=== PATIENT | female | born 1990 | race Caucasian/White ===

== ENCOUNTER 2017-09-11 17:34 | Observation (INO) ==
[2017-09-11] MEDS ORDERED: D5% in 0.45% NACL 1,000 ML IVC SCH (18:45)
--- NOTE | 2017-09-11 18:45 | OB/GYN Progress Note ---
Date of Encounter: 09/11/17 Time of Encounter: 18:38 - Assessment and Plan (1) 31 weeks gestation of Status: Acute at 31 11/24 EGA Tachycardia 100-107, BP normal, Afebrile Hx of pre-eclampsia in 2010 - Current symptoms of LIU, blurred vision, epigastric pain PIH labs normal, CBC normal, Electrolytes normal Hydrate with IV fluids Symptoms more consistent with viral illness - labs unremarkable Pt can be discharged home (2) Vomiting Status: Acute Vomiting and dizziness yesterday - hydrate with IV fluids Electrolytes normal Qualifiers: Vomiting type: unspecified Vomiting Intractability: non-intractable Nausea presence: with nausea Qualified Code(s): R11.2 - Nausea with vomiting, unspecified Subjective - Subjective Principal diagnosis: Vomiting, Headache Interval history: Pt is a 27 year old at 31 11/24 EGA presenting with multiple concerns. She reports a history of vomiting x3 yesterday, chills, and feeling dizzy. Today she reports vomiting x1, frontal headache, tinnitus, bilateral facial numbness now resolved, intermittent blurred vision, sternal chest pain with deep breaths x3, feeling like her "blood pressure is elevated", and epigastric pain that is now resolved. Reports +FM. Denies contractions, LOF, vaginal bleeding, vaginal discharge. Denies fevers, dyspnea, cough, diarrhea, constipation, dysuria, or extremity edema. Her first was complicated by pre-ecclampsia and she is worried that her blood pressure was high today. She reports that yesterday she felt worse than today. I examined this patient and my medical decision-making was reviewed with the Resident Physician. I agree with the documented findings, disposition and treatment plan as described except to the extent set forth below. FHTs CAT1 Antepartum ROS: movement normal, no loss of fluid, no vaginal bleeding, no contractions Objective - Vital Signs Vital Signs: Intake and Output 09/11/17 09/11/17 09/11/17 07:59 15:59 23:59 Other: Weight 84.7 kg Patient Weight 09/11/17 23:59 Weight 84.7 kg - Exam FHR: category 1 Auscultation: bilateral: normal Abdomen: Present: normal appearance, soft. Absent: tenderness Uterus: Present: normal, firm Comments: FHT baseline 135 with moderate variability
[2017-09-11] MEDS ORDERED: D5% in 0.45% NACL 1,000 ML IVC ONE (18:47)
[2017-09-11 18:57] LABS: Basophils % 0.4 %; Eosinophils # 0.1 K/mcL (0.0-0.6); Eosinophils % 0.6 %; Hematocrit 31.8 % (35.3-44.9); Hemoglobin 10.1 g/dL (11.5-15.4); Lymphocytes # 1.9 K/mcL (0.6-4.6); Mean Corpuscular HGB Conc 31.8 g/dL (31.6-35.5); Mean Corpuscular Hemoglobin 24.9 pg (28.0-33.3); Mean Corpuscular Volume 78.5 fL (83.0-100.0); Mean Platelet Volume 10.3 fL (9.4-12.4); Monocytes # 0.7 K/mcL (0.0-1.3); Monocytes % 6.4 %; Neutrophils # 8.1 K/mcL (1.6-8.9); Nucleated Red Blood Cells 0.2 /100 WBC (0); Platelet Count 279 K/mcL (140-400); Red Blood Count 4.05 M/mcL (3.82-4.97); Segmented Neutrophils % 72.6 %
[2017-09-11 19:04] LABS: Amphetamine Screen,Urine Negative ng/mL (Cutoff=1000); Barbiturate Screen,Urine Negative ng/mL (Cutoff=200); Benzodiazepines Screen,Urine Negative ng/mL (Cutoff=200); Cannabinoid Screen,Urine Negative ng/mL (Cutoff = 50); Cocaine Screen,Urine Negative ng/mL (Cutoff= 300); Opiate Screen,Urine Negative ng/mL (Cutoff=300); Phencyclidine Screen,Urine Negative ng/mL (Cutoff=25)
[2017-09-11 19:11] LABS: Alanine Aminotransferase 17 Units/L (0-55); Aspartate Amino Transferase 28 Units/L (5-34); BUN/Creatinine Ratio 13 (6-26); Blood Urea Nitrogen 7 mg/dL (7-20); Lactate Dehydrogenase 175 Units/L (159-327); eGFR For African Americans > 60 (> 60); eGFR For Non-African Americans > 60 (> 60)
[2017-09-11 20:10] LABS: Calcium 8.7 mg/dL (8.6-10.8); Carbon Dioxide 22 mEq/L (19-29); Chloride 107 mEq/L (98-109); Glucose 86 mg/dL (70-99); Osmolality,Calculated 283 (280-300); Potassium 3.9 mEq/L (3.5-4.5); Sodium 138 mEq/L (136-145)
== END 2017-09-11 20:26 | disposition home or self-care (01) ==
LOC: 1NENULAB
PROVIDERS: ADMIT Obstetrics & Gynecology; ATTEND Obstetrics & Gynecology

== ENCOUNTER 2017-10-27 11:40 | Observation (INO) ==
[2017-10-27 12:16] LABS: Basophils # 0.1 K/mcL (0.0-0.2); Basophils % 0.3 %; Eosinophils # 0.1 K/mcL (0.0-0.6); Eosinophils % 0.7 %; Hematocrit 33.2 % (35.3-44.9); Hemoglobin 10.3 g/dL (11.5-15.4); Immature Granulocytes % 4.8 % (0-4); Lymphocytes # 2.4 K/mcL (0.6-4.6); Lymphocytes % 16.3 %; Mean Corpuscular Hemoglobin 23.9 pg (28.0-33.3); Mean Platelet Volume 9.6 fL (9.4-12.4); Monocytes # 0.8 K/mcL (0.0-1.3); Monocytes % 5.2 %; Neutrophils # 10.5 K/mcL (1.6-8.9); Nucleated Red Blood Cells 0.1 /100 WBC (0); Platelet Count 389 K/mcL (140-400); Red Blood Count 4.31 M/mcL (3.82-4.97); Red Cell Distribution Width 18.8 % (11.5-14.5); Segmented Neutrophils % 72.7 %
[2017-10-27 12:24] LABS: Amphetamine Screen,Urine Negative ng/mL (Cutoff=1000); Barbiturate Screen,Urine Negative ng/mL (Cutoff=200); Benzodiazepines Screen,Urine Negative ng/mL (Cutoff=200); Cannabinoid Screen,Urine Negative ng/mL (Cutoff = 50); Cocaine Screen,Urine Negative ng/mL (Cutoff= 300); Opiate Screen,Urine Negative ng/mL (Cutoff=300); Phencyclidine Screen,Urine Negative ng/mL (Cutoff=25)
[2017-10-27 12:31] LABS: Alanine Aminotransferase 12 Units/L (7-52); Aspartate Amino Transferase 26 Units/L (13-39); BUN/Creatinine Ratio 18 (6-26); Blood Urea Nitrogen 10 mg/dL (6-20); Lactate Dehydrogenase 191 Units/L (140-271); Uric Acid 6.4 mg/dL (2.3-7.6); eGFR For African Americans > 60 (> 60); eGFR For Non-African Americans > 60 (> 60)
[2017-10-27 13:03] LABS: Creatinine,Urine 66 mg/dL; Protein/Creatinine Ratio,Urine 0.18 mg/mg (0.00-0.20)
--- NOTE | 2017-10-27 14:03 | OB/GYN Progress Note ---
Date of Encounter: 10/27/17 Time of Encounter: 13:50 - Assessment and Plan (1) 37 weeks gestation of Status: Acute (2) Elevated blood pressure affecting in third trimester, antepartum Status: Acute BP normal in triage. PIH labs WNL. Discharge home with precautions. Follow-up for BP check and NST on Wednesday in office. Subjective - Subjective Principal diagnosis: hypertension Interval history: 27 year-old presenting at 37w6d from office for elevated blood pressure to 150's/90's with repeat 140/80. She reports headaches over the last week. Antepartum ROS: movement normal, no loss of fluid, no vaginal bleeding, no contractions Objective - Vital Signs Vital Signs: Intake and Output 10/26/17 10/27/17 10/27/17 23:59 07:59 15:59 Other: Weight 86.2 kg Patient Weight 10/27/17 23:59 Weight 86.2 kg - Exam FHR: category 1 FHR comments: NST reactive Auscultation: bilateral: normal Abdomen: Present: soft, gravid Comments: reflexes WNL - Labs Labs: Abnormal lab results WBC 14.4 K/mcL (4.3-11.1) H 10/27/17 12:01 Hgb 10.3 g/dL (11.5-15.4) L 10/27/17 12:01 Hct 33.2 % (35.3-44.9) L 10/27/17 12:01 MCV 77.0 fL (83.0-100.0) L 10/27/17 12:01 MCH 23.9 pg (28.0-33.3) L 10/27/17 12:01 MCHC 31.0 g/dL (31.6-35.5) L 10/27/17 12:01 RDW 18.8 % (11.5-14.5) H 10/27/17 12:01 Immature Gran % 4.8 % (0-4) H 10/27/17 12:01 Neutrophils # 10.5 K/mcL (1.6-8.9) H 10/27/17 12:01 Nucleated RBCs/100 WBC 0.1 /100 WBC (0) H 10/27/17 12:01 Creatinine 0.57 mg/dL (0.60-1.20) L 10/27/17 12:01
== END 2017-10-27 13:44 | disposition home or self-care (01) ==
LOC: 1NENULAB
PROVIDERS: ADMIT Obstetrics & Gynecology; ATTEND Obstetrics & Gynecology

== ENCOUNTER 2017-10-31 22:17 | Observation (INO) ==
--- NOTE | 2017-10-31 22:58 | OB/GYN Progress Note ---
Date of Encounter: 10/31/17 Time of Encounter: 22:52 - Assessment and Plan (1) 38 weeks gestation of Current Visit: Yes Status: Acute Continuous monitoring (2) Abdominal pain during in third trimester Current Visit: Yes Status: Acute Contraction monitoring SVE if indicated (3) Elevated blood pressure affecting in third trimester, antepartum Current Visit: No Status: Acute Serial BP's during stay. PIH evaluation with lab work. protein creat ratio (4) Back pain affecting in third trimester Current Visit: Yes Status: Acute Continuous monitoring. Ice pack to back Flexaril PO (5) Tobacco use affecting in third trimester, antepartum Current Visit: Yes Status: Acute Patient educated on smoking cessation materials (6) History of section Current Visit: Yes Status: Acute Dr. Villarreal notified of patient's POC Subjective - Subjective Principal diagnosis: Back and abdominal pain Interval history: Lisa is a 27-year-old at 38w3d, scheduled repeat scheduled for 11/05 who arrived today with complaint of "explosion" in left upper abdomen/back after she coughed today approximately 20 minutes prior to her arrival. Reports decreased movement the past couple of days, denies fluid leakage and vaginal bleeding. Pt reports she has had a cold and cough the last few days. Pt is a smoker. Antepartum ROS: no loss of fluid, no vaginal bleeding, no contractions Objective - Vital Signs Vital Signs: Intake and Output 10/31/17 10/31/17 10/31/17 07:59 15:59 23:59 Other: Weight 87.8 kg Patient Weight 10/31/17 23:59 Weight 87.8 kg - Exam FHR: category 1 FHR comments: FHR 140bpm, moderate variability, +15x15 accels, no decels. Abdomen: Present: normal appearance, soft, gravid Uterus: Present: normal Comments: SVE deferred.
[2017-10-31 23:11] LABS: Basophils # 0.1 K/mcL (0.0-0.2); Basophils % 0.7 %; Eosinophils # 0.1 K/mcL (0.0-0.6); Eosinophils % 0.5 %; Hematocrit 31.4 % (35.3-44.9); Hemoglobin 9.9 g/dL (11.5-15.4); Immature Granulocytes % 5.4 % (0-4); Lymphocytes # 2.7 K/mcL (0.6-4.6); Lymphocytes % 17.4 %; Mean Corpuscular HGB Conc 31.5 g/dL (31.6-35.5); Mean Corpuscular Hemoglobin 24.1 pg (28.0-33.3); Mean Corpuscular Volume 76.4 fL (83.0-100.0); Mean Platelet Volume 9.9 fL (9.4-12.4); Monocytes # 0.8 K/mcL (0.0-1.3); Monocytes % 5.1 %; Neutrophils # 10.9 K/mcL (1.6-8.9); Nucleated Red Blood Cells 0.1 /100 WBC (0); Platelet Count 347 K/mcL (140-400); Red Blood Count 4.11 M/mcL (3.82-4.97); Red Cell Distribution Width 19.8 % (11.5-14.5); Segmented Neutrophils % 70.9 %
[2017-10-31 23:26] LABS: Alanine Aminotransferase 13 Units/L (7-52); Aspartate Amino Transferase 24 Units/L (13-39); BUN/Creatinine Ratio 23 (6-26); Blood Urea Nitrogen 12 mg/dL (6-20); Lactate Dehydrogenase 188 Units/L (140-271); Uric Acid 5.6 mg/dL (2.3-7.6); eGFR For African Americans > 60 (> 60); eGFR For Non-African Americans > 60 (> 60)
[2017-10-31 23:36] LABS: Anisocytosis 1+ (Not Present); Platelet Estimate Normal (Normal); Polychromasia 1+ (Not Present)
[2017-11-01 00:30] LABS: Protein/Creatinine Ratio,Urine 0.13 mg/mg (0.00-0.20)
[2017-11-01 00:40] LABS: Amphetamine Screen,Urine Negative ng/mL (Cutoff=1000); Barbiturate Screen,Urine Negative ng/mL (Cutoff=200); Benzodiazepines Screen,Urine Negative ng/mL (Cutoff=200); Cannabinoid Screen,Urine Negative ng/mL (Cutoff = 50); Cocaine Screen,Urine Negative ng/mL (Cutoff= 300); Opiate Screen,Urine Negative ng/mL (Cutoff=300); Phencyclidine Screen,Urine Negative ng/mL (Cutoff=25)
--- NOTE | 2017-11-01 00:41 | Discharge Summary ---
Date of Encounter: 11/01/17 Time of Encounter: 00:40 - Discharge Diagnosis (1) 38 weeks gestation of Priority: Primary Status: Acute Comments: Patient admitted for observation (2) Abdominal pain during in third trimester Priority: Secondary Status: Acute Comments: suspect pulled muscle from coughing. Patient declines going to ER for further evaluation (3) Elevated blood pressure affecting in third trimester, antepartum Priority: Secondary Status: Acute Comments: PIH labs including protein creat ratio within normal limits BPs also wnl Discussed patient with Dr. Villarreal will discharge home Will cancel BP check and NST for this morning. (4) Back pain affecting in third trimester Priority: Secondary Status: Acute (5) Tobacco use affecting in third trimester, antepartum Priority: Secondary Status: Acute Comments: pain relief with Flexeril (6) History of section Priority: Secondary Status: Acute Comments: Patient scheduled for repeat c/s on 11/05/2017 - Discharge Medications Prescriptions: Cyclobenzaprine [Flexeril] 10 mg PO BID #8 tablet Home Medications: Ferrous Sulfate [Iron] 325 mg PO DAILY 09/11/17 [History] Cyclobenzaprine [Flexeril] 10 mg PO BID #8 tablet 11/01/17 [Rx] Allergies/Adverse Reactions: 3 Allergy/AdvReac Type Severity Reaction Status Date / Time No Known Allergies Allergy Verified 03/24/17 08:33 Data Procedures and tests throughout hospitalization: Laboratory Tests 10/31/17 10/31/17 10/31/17 22:32 22:32 23:33 WBC 15.4 H RBC 4.11 Hgb 9.9 L Hct 31.4 L MCV 76.4 L MCH 24.1 L MCHC 31.5 L RDW 19.8 H Plt Count 347 MPV 9.9 Immature Gran % 5.4 H Seg Neutrophils % 70.9 Lymphocytes % 17.4 Monocytes % 5.1 Eosinophils % 0.5 Basophils % 0.7 Neutrophils # 10.9 H Lymphocytes # 2.7 Monocytes # 0.8 Eosinophils # 0.1 Basophils # 0.1 Nucleated RBCs/100 WBC 0.1 H Platelet Estimate Normal Polychromasia 1+ A Anisocytosis 1+ A BUN 12 Creatinine 0.53 L Est GFR ( Amer) > 60 Est GFR (Non-Af Amer) > 60 BUN/Creatinine Ratio 23 Uric Acid 5.6 AST 24 ALT 13 Lactate Dehydrogenase 188 Urine Creatinine 92 Protein/Creatinin Ratio 0.13 Urine Total Protein 12 Labs on day of discharge: Labs from last 24 hours 10/31/17 10/31/17 10/31/17 23:33 22:32 22:32 WBC 15.4 H RBC 4.11 Hgb 9.9 L Hct 31.4 L MCV 76.4 L MCH 24.1 L MCHC 31.5 L RDW 19.8 H Plt Count 347 MPV 9.9 Immature Gran % 5.4 H Seg Neutrophils % 70.9 Lymphocytes % 17.4 Monocytes % 5.1 Eosinophils % 0.5 Basophils % 0.7 Neutrophils # 10.9 H Lymphocytes # 2.7 Monocytes # 0.8 Eosinophils # 0.1 Basophils # 0.1 Nucleated RBCs/100 WBC 0.1 H Platelet Estimate Normal Polychromasia 1+ A Anisocytosis 1+ A BUN 12 Creatinine 0.53 L Est GFR ( Amer) > 60 Est GFR (Non-Af Amer) > 60 BUN/Creatinine Ratio 23 Uric Acid 5.6 AST 24 ALT 13 Lactate Dehydrogenase 188 Urine Creatinine 92 Protein/Creatinin Ratio 0.13 Urine Total Protein 12 Date of admission: 10/31/17 22:17 Discharging clinician: Usha Kaur Anticipated date of discharge: 11/01/17 - Patient Status Disposition: Home, Self-Care Condition: Good Functional capacity at discharge: independent ambulation - Discharge Instructions Follow Up With: Eboni Washington DO [Partnered Physician] - Additional Instructions: LABOR AND DELIVERY DISCHARGE INSTRUCTIONS Signs and Symptoms to be Reported to your Doctor Immediately: * Sudden gush, continuous or intermittent lead of fluid from vagina (note the time of gush and color of fluid) * Onset of bright red vaginal bleeding with or without pain (if you had a vaginal exam during this visit you may notice some dark red spotting. This is normal.) * Contractions that are 5 minutes apart (from the beginning of one contraction to the beginning of the next) and last 45-60 seonds; contractions that you can no longer walk, talk or laugh through. * A change in the baby's activity. This could be an increase or decrease in activity. * Severe headache which does not go away with tylenol. * Sudden swelling in the face, hands, arms and/or legs. * Upper abdominal pain - sometimes associated with heartburn or nausea and is not relieved by Maalox, Mylanta or Tums. * Kick Counts __ One hour after a meal, lay down on one side in a quiet place. Count the number of time the baby moves during an hour. 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 Patient reports +FM. Patient states pain is better. Patient declines going to ER for further evaluation. - VTE Reasons for not Prescribing Prophylaxis: Treatment not Indicated - Low risk for VTE
== END 2017-11-01 00:50 | disposition home or self-care (01) ==
LOC: 1NENULAB
PROVIDERS: ADMIT Obstetrics & Gynecology; ATTEND Obstetrics & Gynecology

== ENCOUNTER 2017-11-05 07:34 | Inpatient (IN) ==
--- NOTE | 2017-11-05 07:55 | OB/GYN History & Physical ---
Date of Encounter: 11/05/17 Time of Encounter: 07:53 Assessment and Plan (1) 39 weeks gestation of Current visit: Yes Status: Acute Plan: - admit to L&D - FHT reassuring - obtain: CBC, drug screen - prep for c/s - repeat c/s (2) History of 2 sections Current visit: Yes Status: Acute Planned repeat c/s today. Patient declines tubal ligation Risks, benefits, and alternatives of the repeat were discussed and informed consent obtained from the patient. (3) Tobacco abuse Current visit: No Status: Chronic (4) PTSD (post-traumatic stress disorder) Current visit: No Status: Chronic (5) Bipolar disorder Current visit: No Status: Chronic Qualifiers: Active/Remission status: remission status unspecified Qualified Code(s): F31.9 - Bipolar disorder, unspecified (6) Anemia affecting third Current visit: Yes Status: Chronic She will be placed on iron and encouraged to continue. History of Present Illness Chief complaint: repeat c/s HPI: Ms. Solano is a 27 year old female at 39+ weeks presented to labor and delivery for induction of labor. Patient's is complicated by tobacco use and hx of c-sections x 2. Reports active movement. Patient denies vaginal bleeding, contractions, leakage of fluids. Denies N/V, changes in vision, LIU. Patient follows up with Dr. Washington. PNL: Blood type O+ GBS neg, RI, HBsAG neg, HIV neg. RPR neg. Past Med Surg Social Fam HX - Past Medical History Source: patient Medical history: no medical history, other Psychiatric history: bipolar, PTSD - Past Surgical History Surgical History: (x2) - Social History Smoking Status: Current some day smoker Smokeless Tobacco Status: No Alcohol use: none Drug use: none - Family History Mother Adopted: No Family Member Ethnicity: Non- Living Status: Still Living Hx Family Cardiac Disorders: No Hx Family Respiratory Disorders: No Hx Family Cancer: No Hx Family GI Disorders: No Hx Family Endocrine Disorder: No Hx Family Neuromuscular Disorders: No Hx Family Neurologic Disorders: No Hx Family HEENT Disorders: No Hx Family Autoimmune Disorders: No Obstetrical History - Pregnancies : 3 Para: 2 Term: 2 : 0 Ab's: 0 Livin - History/Complications History/Complications: Total pregnancies~ 3.~ Total living children~ 2.~ C section(s)~ 2.~ # 1:~ 2010,Female,6lbs 4oz,,full term-Lulu Ching.~ # 2:~ 2012,Female,6lbs 03oz,,osu.~ Medications and Allergies Ferrous Sulfate [Iron] 325 mg PO DAILY 09/11/17 [History] Cyclobenzaprine [Flexeril] 10 mg PO BID #8 tablet 11/01/17 [Rx] Folic Acid 1 mg PO DAILY 11/05/17 [History] 3 Allergy/AdvReac Type Severity Reaction Status Date / Time No Known Allergies Allergy Verified 11/05/17 08:29 Review of System OB All systems PM: reviewed and no additional remarkable complaints except as stated - Constitutional Constitutional ROS IM: as per HPI Exam - Vital Signs Vital signs: BP systolic 132, HR: 120 - Constitutional Constitutional: well developed, well nourished, no acute distress - HEENT HEENT: EOMI - Neck Neck exam: full ROM - Lungs Respiratory exam: CTAB - Cardiovascular Cardiovascular exam: RRR - Abdomen Abdomen: Present: bowel sounds normal, gravid, non tender - Extremities Extremities exam: full ROM, normal inspection (with vericose veins) - Uterus Uterus exam: Absent: tender Results Result Diagrams: 11/05/17 07:59 All other labs normal. - Attending Attestation I examined this patient and my medical decision-making was reviewed with the Resident Physician. I agree with the documented findings, disposition and treatment plan as described. Eboni Washington DO
--- NOTE | 2017-11-05 08:15 | Anesthesia Evaluation PreOp ---
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 Other Medical History: Denies Any Significant HX, Other (Bipolar) Anesthesia History: No Prior Anesthetic Complications, Past Anesthesia (C- Section under Epidural) : Yes (39 weeks ) Alcohol Use: none Drug use: none Medications and Allergies Ferrous Sulfate [Iron] 325 mg PO DAILY 09/11/17 [History] Cyclobenzaprine [Flexeril] 10 mg PO BID #8 tablet 11/01/17 [Rx] 3 Allergy/AdvReac Type Severity Reaction Status Date / Time No Known Allergies Allergy Verified 03/24/17 08:33 - Meds/Allergy Pre-op Review Medications Reviewed: Yes Allergies Reviewed: Yes Beta Blockers on Current Med List: No Anesthesia Results - Labs Laboratory Tests 09/11/17 10/31/17 10/31/17 18:40 22:32 22:32 Hgb 9.9 L Hct 31.4 L Plt Count 347 Sodium 138 Potassium 3.9 BUN 12 Creatinine 0.53 L - Imaging EKG: report reviewed (SR) Additional studies: ECHO EF 60%, Holter monitor showed occ PVC Anesthesia Exam O2 Sat Height 1.68 m Weight 87 kg Height: 5'6 Weight: 191 lbs, 87 kg NPO (# of Hours): 2200 yesterday Pain Scale: 0 - HEENT Pupil (Motor): Pupils equal, EOMI Mallampati: II Teeth: Normal Oral Opening: Greater than 3 - DRY LUMBER GRADER LOC: Oriented DRY LUMBER GRADER Motor: Normal RUE, Normal LUE, Normal RLE, Normal LLE, Normal Face DRY LUMBER GRADER Sensory: Normal: RUE, LUE, RLE, LLE, Face - Cardiac Rhythm: Regular Murmur: None JVD: No Carotid Bruit: No - Pulmonary Breath Sounds: bilateral Clear Respiratory Effort: Symmetrical Anesthesia Assess/Plan ASA Score: 2 Modified Mike Scale for Level of Consciousness: Cooperative, oriented, and tranquil Anesthetic Plan: Regional Monitoring Plan: Standard Monitors Recovery Plan: PACU (Discussed SAB, possible GA, agrees to proceed)
[2017-11-05] MEDS ORDERED: Metoclopramide 10 MG/2 ML VIAL IVP ONE (08:17)
[2017-11-05] MEDS ORDERED: CeFAZolin Premix DUPLEX 2,000 MG/50 ML BAG IVPB ONE (08:17)
[2017-11-05] MEDS ORDERED: Ringers Solution, Lactated 1,000 ML IVC ONE (08:17)
[2017-11-05] MEDS ORDERED: Famotidine 20 MG/2 ML VIAL IVP ONE (08:17)
[2017-11-05] MEDS ORDERED: Naloxone 0.4 MG/ML INJ IVP PRN (08:20)
[2017-11-05 08:32] LABS: Hematocrit 31.9 % (35.3-44.9); Hemoglobin 10.2 g/dL (11.5-15.4); Mean Corpuscular Hemoglobin 24.1 pg (28.0-33.3); Mean Corpuscular Volume 75.4 fL (83.0-100.0); Mean Platelet Volume 10.2 fL (9.4-12.4); Nucleated Red Blood Cells 0.2 /100 WBC (0); Platelet Count 305 K/mcL (140-400); Red Blood Count 4.23 M/mcL (3.82-4.97); Red Cell Distribution Width 19.8 % (11.5-14.5)
[2017-11-05 08:38] LABS: Amphetamine Screen,Urine Negative ng/mL (Cutoff=1000); Barbiturate Screen,Urine Negative ng/mL (Cutoff=200); Benzodiazepines Screen,Urine Negative ng/mL (Cutoff=200); Cannabinoid Screen,Urine Negative ng/mL (Cutoff = 50); Cocaine Screen,Urine Negative ng/mL (Cutoff= 300); Opiate Screen,Urine Negative ng/mL (Cutoff=300); Phencyclidine Screen,Urine Negative ng/mL (Cutoff=25)
[2017-11-05 09:17] LABS: Lymphocytes # 2.9 K/mcL (0.6-4.6); Monocytes # 0.7 K/mcL (0.0-1.3); Neutrophils # 14.5 K/mcL (1.6-8.9); Platelet Estimate Normal (Normal)
[2017-11-05 09:18] LABS: Anisocytosis 1+ (Not Present); Polychromasia 1+ (Not Present)
[2017-11-05] MEDS ORDERED: Ringers Solution, Lactated 1,000 ML ONE ×2 (09:19→09:29)
[2017-11-05] MEDS ORDERED: Morphine Sulfate/PF 5mg/10mL Vial ONE (09:22)
[2017-11-05] MEDS ORDERED: EPHEDrine 50 MG/ML VIAL ONE (09:22)
[2017-11-05] MEDS ORDERED: *HR* FentaNYL (PF) 100 MCG/2 ML VIAL ONE (09:23)
[2017-11-05] MEDS ORDERED: *HR* Phenylephrine 10 MG/ML VIAL ONE (09:26)
[2017-11-05] MEDS ORDERED: *HR* Oxytocin 10 UNIT/ML VIAL IM ONE (09:29)
[2017-11-05] MEDS ORDERED: Dexamethasone 4 MG/ML VIAL ONE (10:09)
[2017-11-05] MEDS ORDERED: Ondansetron 4 MG/2 ML VIAL ONE (10:09)
[2017-11-05] MEDS ORDERED: *HR* OxyCODONE/APAP 5/325 TABLET PO PRN (10:30)
[2017-11-05] MEDS ORDERED: Ondansetron 4 MG/2 ML VIAL IVP PRN ×2 (10:30→13:45)
[2017-11-05] MEDS ORDERED: *HR* Morphine 2 MG/ML SYRINGE IVP PRN (10:30)
[2017-11-05] MEDS ORDERED: Ondansetron 4 MG/2 ML VIAL IVP ONE (10:30)
[2017-11-05] MEDS ORDERED: Ibuprofen 400 MG TABLET PO PRN (10:30)
[2017-11-05] MEDS ORDERED: *HR* Meperidine 50 MG/ML SYRINGE IVP PRN (10:30)
--- NOTE | 2017-11-05 10:35 | Anesthesia Procedures ---
Date of Encounter: 11/05/17 Time of Encounter: 09:56 Procedures: Anesthesia - Epidural/Spinal Patient ID/Chart reviewed: Yes Patient examined: Yes OB Eval: Gestational age: 39.1 OB Eval: : 3 OB Eval: Hx Para: 2 OB Eval: Contractions: Non-stressed pattern Consent Obtained: Yes Supplemental Oxygen: None/Room Air Site Prep: Aseptic Technique, Sterile prep and drape, Povidone-Iodine 1% Local Anesthetic: Lidocaine 1% Amount of Local Anesthetic used: 3 Interspace Used: L4-L5 Loss of Resistance (BRONWYN): No Blood: No CSF: Yes Paresthesia: Yes Procedure: bupivicaine 0.76% 1.6ml fentanyl 10mcg duramorph 0.3mg, tolerated well, FHT stable VSS
--- NOTE | 2017-11-05 11:03 | OB/GYN Procedure Note ---
Section - Date of procedure: 11/05/17 Preop diagnosis: desires repeat Post-op diagnosis: same Procedure: section, repeat low transverse Surgeon: Eboni Washington Estimated blood loss (cc): 400 Was there an stonecutter assistant present: Yes Snow Technician: Fiona Bay Bilingual Secretary: Daisy Goodrich Anesthesia Type: Spinal section complications: none Disposition: L&D Recovery Room Specimens: Placenta (hold), Cord segment - Infant (s) A Infant Delivery Date: 11/05/17 Delivery Time: :21 Presentation: vertex Position: LOP Gender: Female Viability: Viable Pounds: 9 Ounces: 5 Gram Weight: 4.23 kg at 1 minute: 8 at 5 minutes: 8 Shoulder Dystocia: not encountered Specimens collected: cord blood Placenta: spontaneous Cord: nuchal cord, 3 umbilical vessels - Narrative Narrative: Patient was taken to the operative suite and placed under spinal anesthetic. She was then prepped and draped in normal sterile fashion in the dorsal supine position. Timeout was then performed. Antibiotics were given at room time. SCDs are on and active. Pfannenstiel skin incision is then made and carried through to underlying layer of fascia with the Bovie. The fascia was then incised in the midline and incision extended laterally with the Taveras scissors. The fascia was tented up and dissected off the rectus muscles sharply. The rectus muscles were in the midline and the peritoneum was tented up and entered sharply with the Metzenbaum scissors. The peritoneal incision was then extended bluntly. The bladder blade was then inserted and the vesicouterine peritoneum was entered sharply. Bladder flap was created digitally. A low transverse uterine incision was then made. The vertex was brought to the incision and the was delivered using fundal pressure. There was a loose nuchal cord that was reduced. Cord was clamped and cut. was handed to waiting nursery staff. Placenta delivered spontaneously complete and intact with a three-vessel cord. The uterus was cleared of all clots and debris using moist laparotomy sponge. The uterine incision was then closed using 0 Vicryl in a running locked fashion. A second layer of the same suture was used to obtain excellent hemostasis. The abdomen was then cleared of all clots and debris using copious irrigation. The fascial incision was then closed using 0 Vicryl in a running fashion. The skin was closed using 4-0 Vicryl in a subcuticular fashion. Steri- Strips and sterile dressing are then placed. Mother and infant taken to recovery in stable condition.
[2017-11-05] MEDS ORDERED: Sennosides 8.6 MG TABLET PO PRN (13:45)
[2017-11-05] MEDS ORDERED: Metoclopramide 10 MG/2 ML VIAL IVP PRN (13:45)
[2017-11-05] MEDS ORDERED: Acetaminophen 325 MG TABLET PO PRN (13:45)
[2017-11-05] MEDS ORDERED: Simethicone 80 MG TAB.CHEW PO PRN (13:45)
[2017-11-05] MEDS ORDERED: Oxytocin 20 units/ LR 1000 mL 20 UNIT/1,000 ML BAG IVC SCH ×2 (13:45)
[2017-11-05] MEDS: *HR* OxyCODONE/APAP 5/325 TABLET PO PRN ×2 (14:15→20:36)
[2017-11-05] MEDS: Ibuprofen 600 MG TABLET PO PRN (17:08)
[2017-11-06] MEDS: *HR* OxyCODONE/APAP 5/325 TABLET PO PRN ×4 (03:01→22:26)
[2017-11-06] MEDS: Ibuprofen 600 MG TABLET PO PRN ×2 (03:01→20:25)
[2017-11-06] MEDS: Prenatal Vit/FA 1 EACH TABLET PO SCH (08:44)
--- NOTE | 2017-11-06 10:59 | OB/GYN Progress Note ---
Date of Encounter: 11/06/17 Time of Encounter: 10:56 - Assessment and Plan (1) Status post delivery Current Visit: Yes Status: Acute Stable POD#1 continue current management plan, anticipate DC tomorrow. (2) anemia Current Visit: Yes Status: Acute on iron supplementation. Subjective - Subjective Interval history: Pt states feels well, dressed and ambulating around room, pain well managed on po pain medication, voiding without difficulty, passing flatus Patient reports: appetite normal, voiding normally, pain well controlled, ambulating normally : doing well Objective - Vital Signs Latest vital signs: Vital Signs Temp Pulse Resp BP Pulse Ox 11/06/17 08:20 97.9 F 102 16 132/96 98 11/06/17 03:00 98.1 F 85 16 126/88 98 11/06/17 00:00 99 F 104 16 115/87 97 11/05/17 19:47 98.2 F 108 16 126/75 96 11/05/17 15:10 98.7 F 102 16 119/84 98 11/05/17 14:40 98.0 F 106 16 138/81 98 11/05/17 14:15 98.3 F 108 16 135/91 98 11/05/17 13:30 98.5 F 104 16 128/87 97 Intake and Output 11/05/17 11/06/17 11/06/17 23:59 07:59 15:59 Intake Total 1300 / 1300 200 / 200 200 / 200 Output Total 500 / 500 1075 / 1075 Balance 800 / 800 -875 / -875 200 / 200 Intake: IV Fluids 1000 / 1000 Pitocin 20 unit In 1,000 ml @ 1000 / 1000 125 mls/hr IVC .Q8H [facility] Rx#: [id number] Oral 300 / 300 200 / 200 200 / 200 Output: Catheter 500 / 500 1075 / 1075 Other: Weight 80.694 kg Patient Weight 11/06/17 23:59 Weight 80.694 kg - Exam Lungs: bilateral: normal Chest: Normal S1, Normal S2 Extremities: Present: normal Abdomen: Present: normal appearance, soft Incision: Present: dressed Uterus: Present: normal
[2017-11-07] MEDS: *HR* OxyCODONE/APAP 5/325 TABLET PO PRN ×2 (04:04→08:20)
[2017-11-07] MEDS: Prenatal Vit/FA 1 EACH TABLET PO SCH (08:16)
[2017-11-07 08:21] VITALS: BP 127/89
--- NOTE | 2017-11-07 08:41 | Discharge Summary ---
Date of Encounter: 11/07/17 Time of Encounter: 08:39 - Discharge Diagnosis (1) Status post delivery Priority: Primary Status: Acute Comments: Pt meeting all post-op milestones and desires discharge home today. (2) Bipolar disorder Priority: Secondary Status: Chronic Comments: Pt reports good mood today Qualifiers: Active/Remission status: remission status unspecified Qualified Code(s): F31.9 - Bipolar disorder, unspecified (3) PTSD (post-traumatic stress disorder) Priority: Secondary Status: Chronic (4) Tobacco abuse Priority: Secondary Status: Chronic - Discharge Medications Prescriptions: OxyCODONE/APAP 5/325 [Percocet 5/325 MG] 1 each PO Q4HR PRN #30 tablet PRN Reason: Moderate pain 4-6 Ibuprofen [Motrin] 600 mg PO Q6HR PRN #30 tablet PRN Reason: Cramping Docusate [Colace] 100 mg PO BID #30 capsule Home Medications: Cyclobenzaprine [Flexeril] 10 mg PO BID #8 tablet 11/01/17 [Rx] Folic Acid 1 mg PO DAILY 11/05/17 [History] Docusate [Colace] 100 mg PO BID #30 capsule 11/07/17 [Rx] Ibuprofen [Motrin] 600 mg PO Q6HR PRN #30 tablet 11/07/17 [Rx] OxyCODONE/APAP 5/325 [Percocet 5/325 MG] 1 each PO Q4HR PRN #30 tablet 11/07/17 [Rx] Vit/FA 1 each PO DAILY tablet 11/07/17 [Rx] Simethicone [Gas-X] 80 mg PO TID PRN tab.chew 11/07/17 [Rx] Allergies/Adverse Reactions: 3 Allergy/AdvReac Type Severity Reaction Status Date / Time No Known Allergies Allergy Verified 11/05/17 08:29 Data Procedures and tests throughout hospitalization: Laboratory Tests 11/05/17 11/05/17 07:59 07:59 WBC 18.1 H RBC 4.23 Hgb 10.2 L Hct 31.9 L MCV 75.4 L MCH 24.1 L MCHC 32.0 RDW 19.8 H Plt Count 305 MPV 10.2 Seg Neutrophils % 80.0 Lymphocytes % 16.0 Monocytes % 4.0 Neutrophils # 14.5 H Lymphocytes # 2.9 Monocytes # 0.7 Nucleated RBCs/100 WBC 0.2 H Platelet Estimate Normal Polychromasia 1+ A Anisocytosis 1+ A Urine Opiates Screen Negative Ur Barbiturates Screen Negative Ur Phencyclidine Scrn Negative Ur Amphetamines Screen Negative U Benzodiazepines Scrn Negative Urine Cocaine Screen Negative U Marijuana (THC) Screen Negative Date of admission: 11/05/17 07:34 Primary care physician: Aj Heredia MD Discharging clinician: Dasha Saldana Anticipated date of discharge: 11/07/17 - Patient Status Disposition: Home, Self-Care Condition: Good Functional capacity at discharge: independent ambulation Overall status at discharge: patient is progressing back to baseline - Discharge Instructions Follow Up With: Aj Heredia MD [Primary Care Provider] - Eboni Washington DO [Partnered Physician] - - Diet and Activity Activity: increase activity as tolerated Diet: regular diet Hospital Course Reason for admission: section Delivery: section Episiotomy: none Laceration: none Other procedures: none complications: none Discharge diagnosis: IUP at term delivered [place] baby: female Hospital course: - Date of procedure: 11/05/17 Preop diagnosis: desires repeat Post-op diagnosis: same Procedure: section, repeat low transverse Surgeon: Eboni Washington Estimated blood loss (cc): 400 Was there an animal care assistant present: Yes [place] Trimming Machine Operator: Fiona [place] Straight Ruling Machine Operator: Daisy Goodrich Anesthesia Type: Spinal section complications: none Disposition: L&D Recovery Room Specimens: Placenta (hold), Cord segment - Infant (s) A Infant Delivery Date: 11/05/17 Delivery Time: Presentation: vertex Position: LOP Gender: Female Viability: Viable Pounds: 9 Ounces: 5 Gram Weight: 4.23 kg at 1 minute: 8 at 5 minutes: 8 Shoulder Dystocia: not encountered Specimens collected: cord blood Placenta: spontaneous Cord: nuchal cord, 3 umbilical vessels Time Attestation: Total time spent providing and/or coordinating discharge services: Time Spent: Less than 30 minutes - VTE Documentation of Mechanical Device: Intermittent pneumatic compression device Exam - Constitutional Vitals: Temp Pulse Resp BP Pulse Ox 97.6 F 99 16 127/89 97 11/07/17 08:10 11/07/17 08:10 11/07/17 08:10 11/07/17 08:10 11/07/17 08:10 General appearance IM: A&O X 3 - Respiratory Respiratory exam: Present: CTAB - Cardiovascular Cardiovascular exam IM: Present: RRR - GI/Abdominal GI/Abdominal exam IM: soft, no peritoneal signs - Uterine Tone: Firm Uterus Position: 2 Fingers Below Umbilicus - Extremities Exam Extremities exam IM: Present: normal inspection - Neurological Exam Neurological exam: normal gait, oriented X3 - Psychiatric Additional comments: reports good mood - Other Additional findings: OARRS reviewed
== END 2017-11-07 12:43 | disposition home or self-care (01) | DRG 540 ==
LOC: 1NENULAB 07:34 → 1NENUOBS 13:42
PROVIDERS: ADMIT Obstetrics & Gynecology; ATTEND Obstetrics & Gynecology